=== PATIENT | male | born 1975 | race Caucasian/White ===

== ENCOUNTER 2023-11-17 12:25 | Outpatient (OUT) | payer OTHER, SELFPAY ==
--- NOTE | 2023-11-17 12:36 | XR_ITS ---
The [address] [address] Patient Name: CHRIS COCHRAN MRN: [id number] date: 1975 Sex: M Assigned Patient Location: [facility] Current Patient Location: Accession/Order Number: [id number] Exam Date: 11/17/2023 12:54 Report Date: 11/18/2023 07:16 At the request of: NON-STAFF PHYSICIAN Procedure: XR chest 2V EXAMINATION: XR chest 2V HISTORY: acute cough R05.1 , shortness of breath COMPARISON: No relevant comparison available. FINDINGS: LUNGS: 8.6 x 6.9 x 8.7 cm mass projecting over left perihilar region. Peripheral lung regions are clear. VASCULATURE: No increased pulmonary vasculature. PLEURA: No pneumothorax, effusion, or pleural thickening. CARDIAC: No cardiomegaly or cardiac silhouette abnormality. MEDIASTINUM: No visible mass or adenopathy. BONES: No fracture or visible bone lesion. OTHER: Negative. XR/XR chest 2V IMPRESSION: 1. Large left hilar mass suspicious for neoplasm. CT chest with IV contrast is recommended for further evaluation. Electronically authenticated by: MATTEO RAZO Date: 11/18/2023 07:16
== END 2023-11-17 12:26 | disposition home or self-care (01) ==
LOC: RAD 12:31
DX: R05.1 Acute cough (principal); R91.8 Other nonspecific abnormal finding of lung field
CPT/HCPCS: 71046